=== PATIENT | female | born 1960 | race Caucasian/White ===

== ENCOUNTER → 2019-01-08 | Outpatient (CLI) | payer OTHER ==
--- NOTE | 2019-01-09 08:46 | DIREP ---
PROCEDURE:MRI UPPER EXTREM JOINT W O CON LEFT COMPARISON:None. INDICATIONS:M25.512 PAIN IN LEFT SHOULDER TECHNIQUE:A variety of imaging planes and parameters were utilized for visualization of suspected pathology. Images were performed without contrast. FINDINGS: ROTATOR CUFF REGION CUFF TENDONS:Full-thickness tear anterior supraspinatus insertion measures 17 mm in AP and 15 mm in transverse dimension. Mild tendinosis of the remaining supraspinatus and infraspinous tendons. Mild subscapularis tendinosis, small intrasubstance tear superior sub scapularis insertion allows minimal medial perching of the biceps tendon. Teres minor tendon is intact. CUFF MUSCLES:Rotator cuff muscles are within normal limits. DELTOID:Normal. No significant atrophy or tear. LONG BICEPS TENDON:Biceps tendinosis. Biceps split tear. LABRUM/BICEPS ANCHOR SUPERIOR:Normal. No visible labral tear or biceps anchor pathology. ANTERIOR/INFERIOR:Normal. No visible tear or attrition. POSTERIOR:Normal. No posterior labrum abnormality. CAPSULE ANTERIOR/INFERIOR:Normal. No visible capsular laxity or thickening. POSTERIOR:Normal. No visible capsular laxity or thickening. AC JOINT REGION AC JOINT:Hypertrophy of the capsule. Small osteophytes. Changes consistent with moderate degenerative arthropathy. AC LIGAMENTS:Normal acromioclavicular ligament. CC LIGAMENTS:Normal coracoclavicular ligaments. ACROMION:Normal horizontal (Type I) configuration. SUBACROMIAL BURSA:Mild effusion. HYALINE CARTILAGE:Normal. No visible cartilage narrowing or focal defect. OTHER BONES:Small osteophytes at the humeral head glenoid. OTHER OBSERVATIONS:Negative. No other significant findings or glenohumeral effusion. CONCLUSION: 1. Full-thickness tear of the anterior supraspinatus insertion measures 17 x 15 mm superimposed on tendinosis. 2. Small intrasubstance tear superior sub scapularis insertion superimposed on tendinosis allows medial perching of the biceps tendon. 3. Biceps tendinosis and split tear. Dictated by: Issac Bernal M.D. on 01/09/2019 at 08:39 AM
== END | disposition home or self-care (01) ==
LOC: RAD 16:09
PROVIDERS: ATTEND Chiropractor
DX: M75.82 Other shoulder lesions, left shoulder (principal)
CPT/HCPCS: 73221

== ENCOUNTER → 2020-05-20 | Outpatient (CLI) | payer BC ==
--- NOTE | 2020-05-20 16:38 | DIREP ---
PROCEDURE:MRI UPPER EXTREM JOINT W O CON LEFT COMPARISON:[facility], MR, MRI JOINT UPPER EXTREMITY-LT W/O, 01/08/2019, 04:26 PM. INDICATIONS:S46.012D Strain of muscle(s) and tendon(s) of the rotator cuff of left shou TECHNIQUE:A variety of imaging planes and parameters were utilized for visualization of suspected pathology. Images were performed without contrast. FINDINGS: ROTATOR CUFF REGION CUFF TENDONS:Near complete tear of the supraspinatus insertion with minimal posterior fibers remaining. Retraction is to the apex of the humeral head. There is fibrosis or debris within portions of the tendon gap. Prominent tendinosis of the infraspinous tendon. Teres minor tendon is intact. Mild sub scapularis tendinosis. CUFF MUSCLES:Mild edema and atrophy of the supraspinatus and infraspinous. DELTOID:Normal. No significant atrophy or tear. LONG BICEPS TENDON:Normal. No abnormal signal, attrition, or tear. LABRUM/BICEPS ANCHOR SUPERIOR:No visible displaced tear. ANTERIOR/INFERIOR:Normal. No visible tear or attrition. POSTERIOR:Normal. No posterior labrum abnormality. CAPSULE ANTERIOR/INFERIOR:Normal. No visible capsular laxity or thickening. POSTERIOR:Normal. No visible capsular laxity or thickening. AC JOINT REGION AC JOINT:Small osteophytes and subcortical cystic changes consistent with mild arthropathy. AC LIGAMENTS:Normal acromioclavicular ligament. CC LIGAMENTS:Normal coracoclavicular ligaments. ACROMION:Normal horizontal (Type I) configuration. SUBACROMIAL BURSA:Normal. No significant effusion. HYALINE CARTILAGE:Normal. No visible cartilage narrowing or focal defect. OTHER BONES:Normal proximal humerus, glenoid, and coracoid. OTHER OBSERVATIONS:Small glenohumeral joint effusion. CONCLUSION:Near complete tear of the supraspinatus insertion as detailed above with superimposed tendinosis at the infraspinous. Mild supraspinatus and infraspinous muscle atrophy, edema and fatty change. Dictated by: Issac Bernal M.D. on 05/20/2020 at 04:32 PM
== END | disposition home or self-care (01) ==
LOC: RAD 14:19
PROVIDERS: ATTEND Orthopaedic Surgery
DX: R60.0 Localized edema (principal); M62.58 Muscle wasting and atrophy, not elsewhere classified, other site; E65 Localized adiposity; M77.8 Other enthesopathies, not elsewhere classified; S46.012D Strain of muscle(s) and tendon(s) of the rotator cuff of left shoulder, subsequent encounter; X58.XXXD Exposure to other specified factors, subsequent encounter
CPT/HCPCS: 73221